=== PATIENT | female | born 1930 | race Caucasian/White ===

== ENCOUNTER → 2017-01-03 | Outpatient (CLI) | payer MEDICARE, BC ==
[~2017-01-03] MED LIST: ACCUPRIL PO; ACETAMINOPHEN325 MG PO; ALBUTEROL MININEB NEB; ASPIRIN PO; BENZONATATE200 M1 PO; COMBIVENT U/D3 M2 INH; CORDARONE200 M1 PO; COREG PO; COZAAR25 MG PO; HUMIBID-LA600 MG PO; KLOR-CON PO; LASIX20 MG PO; LIPITOR PO; LYRICA PO; PATIENT'S PHARMACY; PREDNISONE PO; PROTONIX PO; REMERON15 MG PO; SYNTHROID PO
--- NOTE | ~2017-01-03 | ST ---
Unit #: [id number] #: [id number] Patient: CLAIR ORTIZ [id number] [address] [id number] O MR#: [id number] NAME: CLAIR ORTIZ : 1930 SEX: F STUDY DATE/TIME: UNIT: [facility] ROOM: STUDY DESCRIPTION: Stress Test Attending Physician: Santosh Alejo M.D. Referring Physician: Santosh Alejo M.D. Primary Care Physician: Imer Bowers M.D. CARDIOLOGY REPORT EXAM Lexiscan Cardiolite Stress Test DESCRIPTION Baseline EKG - sinus bradycardia, heart rate 40 beats per minute, left atrial abnormality, poor R wave progression. Lexiscan is a four minute test with Lexiscan being injected within the first minute followed by Cardiolite. EKG during the test was equivocal to baseline. It did show some nonspecific changes in lateral leads. At baseline, she had T wave inversion through V1 through V3. The patient's T wave inversions continued in lead V1 through V3. Patient had occasional premature atrial contraction. Maximum heart rate response was 66 beats per minute with a maximum blood pressure response of 177/64 mmHg. The patient became very weak and lightheaded. It was noted that her heart rate never exceeded 51 beats per minute. At the end of recovery phase, patient's symptoms improved. Cardiolite was injected after Lexiscan within the first minute of the test. Radionuclide test pending. Please correlate with nuclear images. Note - informed Dr. Alejo of the patient's baseline heart rate. It is noted she was in the office last week and decreased the dose of amiodarone to 100 mg daily. Called our office and ordered a 30 day event monitor which will be mailed to the house with instructions. Also ordered a TSH and T3 and 4 today to evaluate her thyroid and eliminate causes of her sinus bradycardia. Dictated by... Jeremías Patterson M.D. CEC/df Unit #: [id number] #: [id number] Patient: CLAIR ORTIZ TD: 01/03/2017 10:59 JOB #: [id number] CARDIOLOGY REPORT Page 1 of 1 X Isabella Best APRN CARDIOLOGY REPORT
== END | disposition home or self-care (01) ==
LOC: CNUC 08:07
DX: I25.10 Atherosclerotic heart disease of native coronary artery without angina pectoris (principal)
CPT/HCPCS: 36415; 78452; 84439; 84443; 84481; 93017; A9500; J2785

== ENCOUNTER 2017-01-26 12:44 | Emergency (ER) | payer MEDICARE, BC ==
[~2017-01-26] VITALS: Ht 149.9 cm; Wt 38.5 kg
--- NOTE | ~2017-01-26 | CR253 ---
[facility] A Service of [facility] RADIOLOGY TEXT RESULTS PATIENT: CLAIR ORTIZ LOCATION: [facility] : [birth year] UNIT #: [id number] AGE: [address]: Nitesh Sutton MD SEX: F ORDER DR: [id number] [facility] [address] [facility]. [place], [place] [address] [id number] E MR#: [id number] Acc #: [id number] NAME: CLAIR ORTIZ : 1930 SEX: F STUDY DATE/TIME: 01/26/2017 13:17 UNIT: [facility] ROOM: STUDY DESCRIPTION: CR Tibia and Fibula 2 Views Rt Attending Physician: Nitesh Sutton M.D. Ordering Physician: Nitesh Sutton M.D. Primary Care Physician: Imer Bowers M.D. MEDICAL IMAGING REPORT This report is preliminary unless electronic signature is present EXAM 2 views right tibia-fibula, 01/26/2017 HISTORY Right tibia and fibula pain with laceration today. Fell. COMPARISON None FINDINGS No fracture. No dislocation. A metallic appearing foreign body projects either within or superficial to the soft tissues of the mid rayo, and this foreign body measures 4 mm. Presumed laceration defect also is seen in the posterior mid calf region. Osteopenic changes are present. There is mild spurring at the posterior calcaneus. Vascular calcifications are present. Presumed surgical clips adjacent to the right knee are likely related to previous vein graft harvesting. IMPRESSION 1. Soft tissue laceration defect in the posterior right mid calf region. 2. 4 mm radiopaque foreign body either embedded within or superficial to the soft tissues of the right rayo anteriorly. 3. No acute abnormality of the right tibia and fibula. Dictated by... Jaclyn Oconnell M.D. THIS IS AN ELECTRONICALLY VERIFIED REPORT Jaclyn Oconnell M.D. at 01/28/2017 9:51 AM ARIAN/elyse [facility] A Service of [facility] RADIOLOGY TEXT RESULTS PATIENT: CLAIR ORTIZ [id number] : [birth year] UNIT #: [id number] AGE: [address]: Nitesh Sutton MD SEX: F ORDER DR: TD: 01/27/2017 11:54 JOB #: [id number] MEDICAL IMAGING REPORT Page 1 of 1 COPY
--- NOTE | ~2017-01-26 | EKG ---
PATIENT: CLAIR ORTIZ UNIT #: [id number] Ventricular Rate: 59 BPM Atrial Rate: 59 BPM P-R Interval: 258 ms QRS Duration: 84 ms Q-T Interval: 474 ms QTC Calculation(Bezet): 469 ms P [place]: 40 degrees Calculated R [place]: -9 degrees Calculated T [place]: 58 degrees Diagnosis Line: Sinus bradycardia with 1st degree A-V block Diagnosis Line: Otherwise normal ECG Diagnosis Line: When compared with ECG of 20-SEP-2015 09:51, Diagnosis Line: [place] interval has increased Diagnosis Line: Confirmed by ADAM GUERRA MD ([id number]) on 01/29/2017 Diagnosis Line: 7:45:49 AM INTERPRETING MD: CHARLIE JEWELL
--- NOTE | ~2017-01-26 | CT71 ---
[facility] A Service of [facility] RADIOLOGY TEXT RESULTS PATIENT: CLAIR ORTIZ LOCATION: [facility] : [birth year] UNIT #: [id number] AGE: [address]: Nitesh Sutton MD SEX: F ORDER DR: [id number] [facility]. [place], [place] [address] [id number] E MR#: [id number] Acc #: [id number] NAME: CLAIR ORTIZ : 1930 SEX: F STUDY DATE/TIME: 01/26/2017 14:05 UNIT: [facility] ROOM: STUDY DESCRIPTION: CT Head Wo Contrast Attending Physician: Nitesh Sutton M.D. Ordering Physician: Nitesh Sutton M.D. Primary Care Physician: Imer Bowers M.D. MEDICAL IMAGING REPORT This report is preliminary unless electronic signature is present EXAM CT head INDICATION Hypertension. Fall. Trauma to the back of the head. Headache. TECHNIQUE CT of the head without contrast. This CT examination was performed with one or more of the following radiation dose reduction techniques: automatic exposure control, adjustment of mA and/or kV according to patient size, and iterative reconstruction. COMPARISON None available. FINDINGS Axial noncontrast images were obtained from the skull base to the vertex. Ventricular size and configuration are normal. There is no evidence of acute infarct or hemorrhage. There are no extra-axial fluid collections. No mass lesion or mass effect is seen. There are no skull fractures. IMPRESSION Normal noncontrast head CT. Dictated by... Naun Lin M.D. THIS IS AN ELECTRONICALLY VERIFIED REPORT Naun Lin M.D. at 01/27/2017 3:44 PM Mitali/shahzad [facility] A Service of [facility] RADIOLOGY TEXT RESULTS PATIENT: CLAIR ORTIZ LOCATION: [facility] : [birth year] UNIT #: [id number] AGE: [address]: Nitesh Sutton MD SEX: F ORDER DR: TD: 01/27/2017 12:01 JOB #: [id number] MEDICAL IMAGING REPORT Page 1 of 1 COPY
== END 2017-01-26 16:25 | disposition home or self-care (01) ==
LOC: CED 12:44
DX: S81.811A Laceration without foreign body, right lower leg, initial encounter (principal); S00.03XA Contusion of scalp, initial encounter; I11.0 Hypertensive heart disease with heart failure; I50.9 Heart failure, unspecified; Z23 Encounter for immunization; W20.8XXA Other cause of strike by thrown, projected or falling object, initial encounter
CPT/HCPCS: 12004; 70450; 73590; 90471; 90715; 93005; 99284